=== PATIENT | male | born 1995 | race Caucasian/White ===

== ENCOUNTER → 2021-11-18 00:20 | Outpatient (CLI) | payer OTHER, SELFPAY ==
[2021-11-18 11:36] LABS: SARS-CoV-2 RNA PCR Negative
== END ==
PROVIDERS: PCP Family Medicine; Visit Provider Family Medicine
DX: R68.89 Other general symptoms and signs (principal); Z20.822 Contact with and (suspected) exposure to COVID-19
CPT/HCPCS: C9803; U0003; U0005

== ENCOUNTER 2021-11-20 07:36 | Outpatient (CLI) | payer OTHER, SELFPAY ==
--- NOTE | 2021-11-28 15:54 | WPDSLEEPSTUD ---
Sleep Study Date of Study: 11/20/21 Ordering Provider: Duyen Roper DO Interpreting Physician: Dori Hernandez MD Sleep Study Type: Polysomnogram Height: 1.93 m Weight: 82.1 kg Body Mass Index: 22.0 Neck Circumference (inches): 17 Derby Line: 6 Reason for Sleep Study Hypersomnia Sleep History Young Kinney is a 26 year old man with a history of feeling tired upon waking which started a few years ago. He attributed his feeling to frequent partying and poor eating habits but now he no longer eats as much takeout food, he does not democrat as much, and he keeps better hours. He has tried taking supplements or an occasional sleeping pill without improvement. He feels more tired when he takes a sleeping pill. He depends on coffee in order not to feel so tired and to have decreased yawning during the day. He definitely has more excessive daytime sleepiness if he does not use coffee. There is no family history of sleep disordered breathing. Melatonin definitely makes him feel more tired. He rarely awakens from sleep feeling short of breath. He does not awaken at night with heartburn, belching or coughing. He rarely snores but never loudly enough that others complain about it. He occasionally has trouble sleeping with a cold. He rarely wakes up gasping for breath at night. He frequently has breathing problems at night observed by others. He constantly sweats excessively at night. He occasionally notices his heart pounding or beating irregularly at night. He does not fall asleep during the day or fall asleep involuntarily. He does not fall asleep while driving. Does not have loss of muscle tone with strong emotion. He frequently has daytime difficulties due to excessive sleepiness. He does not feel paralyzed on waking or falling asleep. He frequently has vivid dreamlike scenes upon awakening or falling asleep. He does not feel afraid to go to sleep. He rarely has nightmares. He does not remember his dreams. He constantly has racing thoughts. He frequently feels sad, depressed or anxious. He rarely has muscular tension. He frequently notices parts of his body jerking. He rarely kicks at night. He rarely has crawling or aching feelings in his legs. He does not have any kind of leg pain at night. He rarely has morning jaw pain. He does not grind his teeth during sleep. He is not bothered by pain during the day or awakened by pain at night. He rarely wakes up feeling stiff in the morning. He rarely wakes up with sore achy muscles. He has headaches, depression, fatigue and feels anxious at times. Sometimes he has insomnia. He is too tired frequently to go out at night. He estimates getting between 6 and 8 hours of sleep at night. Normal bedtime is between 9:00 p.m. and 10:00 p.m. during the week, falling asleep within 30 minutes to 1 hour. He does not wake often at night, once at most, perhaps once per week. When he does wake during the night, he checks his phone then returns to sleep. He wakes the morning between 6:30 and 7:00 a.m.. His weekend schedule is similar, bedtime is 10:00 p.m. and he wakes between 7:30 and 8:00 a.m.. He does not stay in the bed long after waking as he feels very uncomfortable in the mornings. He describes himself as a light sleeper. He does not take naps. A short nap makes him feel more tired. He is usually drowsy in the morning until he drinks coffee. If he does not have coffee, he is drowsy all day. He tried using melatonin as well as marijuana to help him sleep but this was no help. Habits: Never smoked tobacco. Caffeine: He drinks 1 cup of coffee daily, one soda a week. No alcohol. No use of recreational drugs. [facility] Past Medical History Medical History Broken clavicle Right Broken fingers Broken wrist Family History Family History Mother Diabetes mellitus Social History S
[2021-11-29 14:36] VITALS: BMI 22.0
== END 2021-11-21 06:14 | disposition home or self-care (01) ==
LOC: ANHCSM 07:37
PROVIDERS: PCP Family Medicine; Visit Provider Family Medicine
DX: R06.83 Snoring (principal)
CPT/HCPCS: 95810